=== PATIENT | male | born 1975 | race Caucasian/White ===

== ENCOUNTER 2019-06-03 07:29 | Emergency (ER) | payer OTHER ==
[~2019-06-03] VITALS: Ht 172.7 cm; Wt 81.6 kg
[2019-06-03] MEDS ORDERED: LEXAPRO20 MG (07:36)
[2019-06-03] MEDS ORDERED: ATENOLOL25 MG (07:37)
== END 2019-06-03 09:10 | disposition home or self-care (01) ==
LOC: ER 07:29
DX: R42 Dizziness and giddiness (principal); F06.4 Anxiety disorder due to known physiological condition